=== PATIENT | female | born 1975 | race Caucasian/White ===

== ENCOUNTER 2016-06-12 22:11 | Emergency (ER) | payer OTHER ==
[~2016-06-12] VITALS: Ht 170.2 cm; Wt 63.5 kg
[~2016-06-12 22:11] MED LIST: FENTANYL1 EAC5 TOP; OXYCODONE HCL30 M1 PO; OXYCODONE HCL5 M1 PO; TIVICAY50 M1 PO; TRUVADA 200 MG1 EACH PO; ZOFRAN ODT4 M1 PO
[2016-06-12] MEDS ORDERED: NAPROSYN500 M1 PO (23:39)
[2016-06-12] MEDS ORDERED: ZOFRAN ODT4 M1 SL (23:39)
[2016-06-12] MEDS ORDERED: PYRIDIUM200 M1 PO (23:39)
[2016-06-12] MEDS ORDERED: CIPRO500 M1 PO (23:39)
--- NOTE | 2016-06-12 23:39 | ED GI/GU/ABDOMINAL COMPLAINT ---
History of Present Illness General Chief Complaint: Female Urogenital Problems Stated Complaint: BURNING WITH URINATION Source: patient Exam Limitations: no limitations Vital Signs & Intake/Output Vital Signs & Intake/Output Vital Signs Date Time Temp Pulse Resp B/P Pulse O2 O2 Flow FiO2 Ox Delivery Rate 06/12 2353 97.4 90 16 120/90 97 Room Air 06/12 2215 97.8 97 20 123/90 98 Room Air ED Intake and Output 06/13 0000 06/12 1200 Intake Total 0 Output Total Balance 0 Intake, Oral 0 Patient 140 lb Weight Allergies Coded Allergies: Penicillins (Intermediate, RASH 05/14/16) latex (Intermediate, RASH 05/14/16) lorazepam (Intermediate, GI, RASH 05/14/16) gabapentin (REALLY BAD RASH 05/14/16) nevirapine (From VIRAMUNE) (NASTY RASH AND VOMITING 05/14/16) tramadol (Intermediate, INTERFERES WITH HIV MEDS 05/14/16) Triage Note: RECEIVED 40 YO FEMALE C/O BURNING WITH URINATION AND BLADDER AREA PAIN WITH URINARY FREQUENCY, STARTED THIS AM. Triage Nurses Notes Reviewed? yes ? N Is pt currently ? No HPI: This patient is a 40-year-old female who presented to the emergency department today for evaluation of painful urination. She reported that her symptoms began last night after she took a bath. She reported that on the "I feel like I am peeing razor blades." She was unable to quantify the pain on a pain scale. She reported that the pain is been constant. She reported urinary urgency and frequency. She also reported noting some blood in the urine. The patient reported pain over her bladder. She is now experiencing some mild lower back pain. The patient reported tactile fevers and chills. (CHA HSIEH,TASHA) Reconcile Medications Ciprofloxacin HCl (Cipro) 500 MG TABLET 1 TAB PO BID pyelonephritis Dolutegravir Sodium (Tivicay) 50 MG TABLET 1 TAB PO DAILY ANTIVIRAL (Reported ) Emtricitabine/Tenofovir (Truvada 200 MG-300 MG Tablet) 200 MG-300 MG TABLET 1 TAB PO DAILY ANTIVIRAL (Reported) Fentanyl 100 MCG/HOUR PATCH.TD72 1 PAT TOP Q3D PAIN (Reported) Naproxen (Naprosyn) 500 MG TABLET 1 TAB PO BID PRN pain Ondansetron (Zofran Odt) 4 MG TAB.RAPDIS 1 TAB PO Q6 PRN NAUSEA Ondansetron (Zofran Odt) 4 MG TAB.RAPDIS 1 TAB SL TID PRN nausea Oxycodone HCl 5 MG TABLET 1 TAB PO Q8H PRN PAIN (Reported) Oxycodone HCl 30 MG TABLET 1 TAB PO TID PAIN (Reported) Oxycodone HCl 5 MG TABLET 1 TAB PO BIDP PRN PAIN Phenazopyridine HCl (Pyridium) 200 MG TABLET 1 TAB PO TID dysuria (ERIKA PÉREZ,FADUMO Milian) Past History Travel History Traveled to [place] past 21 day No Medical History Any Pertinent Medical History? see below for history Neurological: NONE EENT: NONE Cardiovascular: hyperlipidemia Respiratory: NONE Gastrointestinal: NONE Hepatic: NONE Renal: NONE Musculoskeletal: NONE Psychiatric: NONE, BIPOLAR DISORDER SCHIZOAFFECTIVE DISORDER Endocrine: NONE Blood Disorders: + HIV Surgical History Surgical History: appendectomy, hernia repair-inguinal, hysterectomy Psychosocial History Who do you live with Spouse What is your primary language Icelandic Tobacco Use: Current Daily Use Daily Tobacco Use Amount/Type: => 5 Cigarettes daily Family History Hx Contributory? No (TASHA EUBANKS PA-C) Review of Systems Review of Systems Constitutional: Reports: see HPI. EENTM: Reports: no symptoms. Respiratory: Reports: no symptoms. Cardiovascular: Reports: no symptoms. GI: Reports: no symptoms. Genitourinary: Reports: see HPI. Musculoskeletal: Reports: no symptoms. Skin: Reports: no symptoms. Neurological/Psychological: Reports: no symptoms. All Other Systems: Reviewed and Negative (TASHA EUBANKS PA-C) Physical Exam Physical Exam Gastrointestinal: normal bowel sounds, soft, non-tender, no organomegaly Comments: Well-developed well-nourished person in no acute distress HEENT: Normal EENT exam, head normocephalic, moist mucous membranes Neck: Supple, no lymphadenopathy Back: Normal gait. No midline tenderness. Bilateral CVA tenderness Cardiovascular: Regular rate and rhythm with no murmurs Respiratory: Chest nontender. No respiratory distress. Breath sounds clear to auscultation bilaterally Extremity: Normal and equal pulses Neuro: Alert oriented x3, cranial nerves II through XII grossly intact. Skin: No appreciable rash on exposed skin, skin is warm and dry. Psych: Mood and affect is normal Core Measures ACS in differential dx? No Severe Sepsis Present: No Septic Shock Present: No (TASHA EUBANKS PA-C) Progress Differential Diagnosis: appendicitis, biliary colic, bowel obstruction, colon cancer, cholecystitis, diverticulitis, ectopic , endometritis, gastritis, ischemic bowel, inflamm bowel dis, kidney stone, ovarian cyst, ovarian torsion, pancreatitis, PID/cervicitis, PUD/GERD, perforated viscous, threatened AB, UTI/pyelo Plan of Care: Orders Procedure Date/time Status CULTURE,URINE 06/12 2223 Active URINE 06/12 2213 Complete URINALYSIS 06/12 2213 Complete Laboratory Tests 06/12/162226: Urine Color ARINA, Urine Clarity HAZY H, Urine pH 5.0, Ur Specific [place]ul[place] 1.030, Urine Protein 30 H, Urine Ketones NEG, Urine Nitrite POS H, Urine Bilirubin NEG@ICTO, Urine Urobilinogen 2.0 H, Ur Leukocyte Esterase TRACE H, Ur Microscopic SEDIMENT EXAMINED, Urine RBC 15-25 H, Urine WBC > 75 H, Ur Epithelial Cells FEW, Urine Hemoglobin LARGE H, Urine Glucose NEG, Urine Test NEGATIVE Microbiology 06/12 2226 URINE ROUT: Urine Culture - RECD Initial ED EKG: none Comments: 06/12/2016 11:35:38 PM: The patient is currently sitting comfortably on the stretcher, in no acute distress, nontoxic appearing. Greater than 75 white blood cell count on urinalysis. With CVA tenderness on physical examination and reported eye lateral flank pain, I will treat this patient as if she has pyelonephritis. Patient is afebrile and comfortable in the room. Counseled this patient on the importance of taking the outpatient antibiotics as directed and for the full duration. Also counseled the patient extensively on the importance of returning to the emergency department should she develop any fevers, vomiting, or any worsening symptoms at all as she may require IV antibiotics. Stable for discharge home at this time for outpatient treatment. (TASHA EUBANKS PA-C) Departure Departure Disposition: HOME OR SELF CARE Condition: Stable Clinical Impression Primary Impression: Pyelonephritis Referrals: PATIENT HAS NO PRIMARY CARE DR (PCP/Family) Additional Instructions: Take antibiotic as prescribed and for its full duration. Rest and be sure to stay hydrated. Take Pyridium as prescribed for burning with urination. Take Zofran as prescribed for nausea. Take medication for pain as directed. Please return to the emergency department immediately for any worsening symptoms, high fevers, vomiting, or for any other concerns. Departure Forms: Customer Survey General Discharge Information Prescriptions: Current Visit Scripts Ciprofloxacin HCl (Cipro) 1 TAB PO BID #28 TAB Naproxen (Naprosyn) 1 TAB PO BID PRN pain #20 TAB Ondansetron (Zofran Odt) 1 TAB PO Q6 PRN NAUSEA #20 TAB Phenazopyridine HCl (Pyridium) 1 TAB PO TID #9 TAB Ondansetron (Zofran Odt) 1 TAB SL TID PRN nausea #10 TAB (TASHA EUBANKS PA-C) PA/COMPOSITION TILE LAYER Co-Sign Statement Statement: ED Attending supervision documentation- [] I saw and evaluated the patient. I have also reviewed all the pertinent lab results and diagnostic results. I agree with the findings and the plan of care as documented in the PA's/COMPOSITION TILE LAYER's documentation. [x] I have reviewed the ED Record and agree with the PA's/COMPOSITION TILE LAYER's documentation. [] Additions or exceptions (if any) to the PAs/COMPOSITION TILE LAYER's note and plan are summarized below: [] (ERIKA PÉREZ,FADUMO Milian)
[2016-06-12 23:53] VITALS: BP 120/90
[2016-06-13] MEDS ORDERED: NAPROSYN500 M1 PO (11:08)
[2016-06-13] MEDS ORDERED: ZOFRAN ODT4 M1 PO (11:08)
[2016-06-13] MEDS ORDERED: CIPRO500 M1 PO (11:08)
[2016-06-13] MEDS ORDERED: PYRIDIUM200 M1 PO (11:08)
== END 2016-06-12 23:54 ==
LOC: ERH 22:11
DX: N12 Tubulo-interstitial nephritis, not specified as acute or chronic (principal)
CPT/HCPCS: 81001; 81025; 87086